=== PATIENT | male | born 1985 | race American Indian/Alaskan Native ===

== ENCOUNTER 2019-05-25 10:10 | Outpatient (CLI) | payer OTHER ==
--- NOTE | 2019-05-27 15:58 | Ultrasound Report ---
BILATERAL DIGITAL DIAGNOSTIC MAMMOGRAM WITH CAD 05/25/2019 RIGHT LIMITED BREAST ULTRASOUND INDICATION: 34-year-old male with a right breast lump. A lump is apparently felt at 2:00 in the right breast but the patient does not feel a lump. N64.9 TECHNIQUE: Digital bilateral mammographic imaging was performed. Limited ultrasound was performed. T his examination was interpreted with the benefit of Computer-Aided Detection (CAD) analysis. COMPARISON: None. FINDINGS: Breast Density: The breasts are almost entirely fatty. MAMMOGRAPHIC FINDINGS: There is no evidence of dominant mass, suspicious calcifications or architectu ral distortion in either breast. ULTRASOUND FINDINGS: Ultrasound of the upper outer right breast was performed and demonstrated normal fatty structures. No mass, cyst or shadowing. IMPRESSION: Negative bilateral mammogram and negative right breast ultrasound. Recommend clinical fol low-up. Follow up recommendation: Clinical exam BI-RADS Category 1: Negative. A "normal" or negative report should not discourage follow up or biopsy of a clinically significant f inding. A written summary of these findings will be mailed to the patient. The patient will be entered into a mammography reporting system which will generate a reminder letter for the patient's next appointmen t at the appropriate interval. According to the [employer], yearly mammograms are recommended starting at age 40 and continuing as long as a woman is in good health. Breast MRI is recommended for women with an isiah roximately 20-25% or greater lifetime risk of breast cancer, including women with a strong family his tory of breast or ovarian cancer and women who have been treated for Hodgkin's disease. Signer Name: Bonifacio Naylor MD Signed: 05/25/2019 12:52 PM Workstation Name: [id number]
== END 2019-05-25 10:11 | disposition home or self-care (01) ==
LOC: MAMMO 10:10
PROVIDERS: ATTEND Family Medicine
DX: R92.8 Other abnormal and inconclusive findings on diagnostic imaging of breast (principal)
CPT/HCPCS: 77066